=== PATIENT | female | born 1990 | race Caucasian/White ===

== ENCOUNTER 2022-10-15 01:50 | Emergency (ER) | payer OTHER ==
[~2022-10-15] VITALS: Ht 172.7 cm; Wt 61.0 kg
[2022-10-15] MEDS ORDERED: BACITRACIN ZINC OINT UDPKT TOP ONE (02:45)
[2022-10-15] MEDS ORDERED: LIDOCAINE HCL/PF 1% 10 MG/ML 5ML VIAL INFIL ONE (02:45)
[2022-10-15] MEDS ORDERED: NAPR-681 PO (05:27)
[2022-10-15 05:50] VITALS: BP 108/77
== END 2022-10-15 05:50 | disposition home or self-care (01) ==
LOC: ER 01:50
DX: S01.01XA Laceration without foreign body of scalp, initial encounter (principal); F10.129 Alcohol abuse with intoxication, unspecified; Y90.9 Presence of alcohol in blood, level not specified; Z63.4 Disappearance and death of family member; R03.0 Elevated blood-pressure reading, without diagnosis of hypertension; W01.198A Fall on same level from slipping, tripping and stumbling with subsequent striking against other object, initial encounter; Y93.89 Activity, other specified; Y92.29 Other specified public building as the place of occurrence of the external cause
CPT/HCPCS: 70450; 81025; 99284; J3490; Z7610